=== PATIENT | male | born 1950 | race Caucasian/White ===

== ENCOUNTER 2023-02-23 14:21 | Emergency (ER) | payer MEDICARE ==
[~2023-02-23] VITALS: Ht 182.9 cm; Wt 86.2 kg
[2023-02-23] MEDS ORDERED: ONDANSETRON 4MG INJ ONE (14:45)
[2023-02-23] MEDS ORDERED: MORPHINE 2 MG SYG ONE (14:53)
[2023-02-23] MEDS ORDERED: PROMETHAZINE HCL 25 MG/ML 1ML AMPULE IM ONE ×2 (14:53→15:00)
[2023-02-23 14:56] LABS: APPEARANCE,URINE CLOUDY (CLEAR); BILIRUBIN,URINE NEGATIVE (NEGATIVE); COLOR,URINE YELLOW (YELLOW); GLUCOSE, URINE (UA) NEGATIVE (NEGATIVE); KETONES,URINE 5 mg/dL (NEGATIVE); LEUKOCYTE ESTERASE ,URINE NEGATIVE Leu/uL (NEGATIVE); NITRATE,URINE NEGATIVE (NEGATIVE); OCCULT BLOOD,URINE LARGE (NEGATIVE); PROTEIN,URINE 30 mg/dL (NEGATIVE); UROBILINOGEN,URINE 0.2 mg/dL (0.2-1.0)
[2023-02-23 14:59] LABS: BASOPHILS % (AUTO) 0.5 % (0.0-5.0); EOSINOPHILS % (AUTO) 1.1 % (0.0-8.0); HEMATOCRIT 42.8 % (42-54); LYMPHOCYTES % (AUTO) 8.9 % (21.0-51.0); MEAN CORPUSCULAR HEMOGLOBIN 32.9 pg (27.0-33.0); MEAN CORPUSCULAR HGB CONC 34.3 g/dL (32.0-36.0); MEAN CORPUSCULAR VOLUME 95.7 fL (79-99); MONOCYTES % (AUTO) 7.4 % (3.0-13.0); NEUTROPHILS % (AUTO) 81.6 % (40.0-77.0); PLATELET COUNT (AUTO) 169 K/uL (130-400); RED BLOOD CELL COUNT(AUTO) 4.47 MIL/uL (4.50-6.20); RED CELL DISTRIBUTION WIDTH 13.3 % (11.0-15.5); WHITE BLOOD COUNT (AUTO) 9.8 K/uL (4.8-10.8)
[2023-02-23] MEDS ORDERED: ONDANSETRON 4MG INJ IVP ONE (15:00)
[2023-02-23] MEDS ORDERED: MORPHINE 2 MG SYG IVP ONE ×2 (15:00→17:00)
[2023-02-23 15:10] LABS: BACTERIA,URINE RARE /HPF (None Seen); MUCUS,URINE RARE LPF (None Seen); OTHER CASTS, URINE 2 /LPF (None Seen); RBC,URINE 51-100 /HPF (0-1); SQUAMOUS EPITHELIAL CELL,UR RARE /HPF (0-2)
[2023-02-23 15:10] LABS: CREATININE 1.3 mg/dL (0.5-1.5); POTASSIUM 4.2 mmol/L (3.5-5.1)
[2023-02-23 15:15] LABS: ALBUMIN 4.4 g/dL (3.5-5.0); TOTAL PROTEIN, SERUM 7.2 g/dL (6.0-8.3)
[2023-02-23] MEDS ORDERED: TAMSULOSIN HCL 0.4 MG CAP.ER.24H ONE (16:56)
[2023-02-23] MEDS ORDERED: 0.9% NACL 500ML IV.SOLN 500 ML IV ONE (17:00)
[2023-02-23] MEDS ORDERED: KETOROLAC 15MG/ML VIAL (15MG/ML) IM ONE (17:00)
[2023-02-23 18:19] VITALS: BP 143/51
[2023-02-23] MEDS ORDERED: ACET-2079 PO (18:48)
[2023-02-23] MEDS ORDERED: TAMS-1 PO (18:48)
== END 2023-02-23 18:53 | disposition home or self-care (01) ==
LOC: EDH 14:21
DX: N20.1 Calculus of ureter (principal); R00.1 Bradycardia, unspecified; R11.0 Nausea
CPT/HCPCS: 99285; 74176; 96374; 80053; 85025; 87088; 81001; 36415; 96372 ×2; 96376; J2270 ×2; J7030; J2550; J2405; J1885

== ENCOUNTER 2025-07-13 06:02 | Inpatient (IN) | payer MEDICARE ==
[2025-07-12 11:42] LABS: INR 0.97 (0.85-1.15)
--- NOTE | 2025-07-12 11:48 | EKG ---
[facility] Test Date: 2025-07-12 Test Time: 12:11:44 Pat Name: COLT PAN Department: [facility] Room: 415 Gender: M Manager Flight: [id number] : 1950 Requested By: WALTER LOPEZ Order Number: [id number] Reading MD: Rosario Parr Measurements Intervals [place] Rate: 53 P: 65 AR: 177 QRS: 83 QRSD: 98 T: 72 QT: 429 QTc: 403 Interpretive Statements Sinus rhythm No previous ECG available for comparison Electronically Signed On 07-14-2025 12:38:01 DRIVER COURIER by Rosario Parr Please click the below link to view image of tracing.
[2025-07-12 11:50] VITALS: BP 132/66; PULSE 56; RESP 14; TEMP 97.5
--- NOTE | 2025-07-12 11:52 | NUR ---
PREOP PT INSTRUCTED ON INCENTIVE SPIROMETRY BY PHYLLIS SHELTON
[2025-07-13] VITALS (28 sets, daily range): BP systolic 98–151; BP diastolic 45–80; PULSE 45–102; RESP 15–20; TEMP 97.3–98; O2SAT 98
[~2025-07-13] VITALS: Ht 180.3 cm; Wt 85.3 kg
[~2025-07-13 06:02] MED LIST: ACET-2079 PO; MVI PO; NAPR-1194 PO; TAMS-55 PO
[2025-07-13] MEDS: LACTATED RINGERS 1000ML 1,000 ML IV ONE (06:40)
[2025-07-13] MEDS ORDERED: MIDAZOLAM HCL 1 MG/ML 2ML VIAL ONE (06:45)
[2025-07-13] MEDS ORDERED: LIDOCAINE 2%-EPI 1:200,000 20 ML VIAL IJ ONE (07:02)
[2025-07-13] MEDS ORDERED: PROMETHAZINE HCL 25 MG/ML 1ML AMPULE IM PRN (07:30)
[2025-07-13] MEDS: TRANEXAMIC ACID 1000MG/10ML IV ONE ×2 (07:49→09:42)
[2025-07-13] MEDS ORDERED: PoTASSium chl 10% ELIXIR 20MEQ 20 MEQ/15 ML UDCUP PO PRN (08:00)
[2025-07-13] MEDS ORDERED: FERROUS FUMARATE 324 MG TABLET PO PRN (08:00)
[2025-07-13] MEDS: ERGOCALCIFEROL (VITAMIN D2) 50,000 UNIT CAPSULE PO ONE (08:00)
[2025-07-13] MEDS ORDERED: CALCIUM CARB 500MG PO PRN (08:00)
[2025-07-13] MEDS ORDERED: HYDROcodone/APAP 5/325 1 TAB TABLET PO PRN (08:00)
[2025-07-13] MEDS ORDERED: GLYCOPYRROLATE 0.2 MG/ML 5 ML VIAL ONE ×2 (10:00→10:15)
[2025-07-13] MEDS ORDERED: NEOSTIGMINE METHYLSULFATE 1MG/ML IV ONE (10:00)
--- NOTE | 2025-07-13 11:30 | HMCIMG ---
EXAM: CR right Knee, 2 View. CLINICAL HISTORY: S/P RT TKA SURGERY COMPARISON: None provided. FINDINGS: No acute fracture or aggressive appearing osseous lesion. Right total knee arthroplasty is in near anatomic alignment with no periprosthetic fracture appreciated. Appropriate postsurgical changes within the soft tissues surrounding the knee. IMPRESSION: 1. Right total knee arthroplasty in near anatomic alignment without periprosthetic fracture. /[place]
--- NOTE | 2025-07-13 12:05 | OP ---
Operative Note: DATE OF PROCEDURE: 07/13/25 PREOPERATIVE DIAGNOSIS: Right knee osteoarthritis. POSTOPERATIVE DIAGNOSIS: Right knee osteoarthritis. PROCEDURE PERFORMED: Right knee total knee arthroplasty. SURGEON: Joselyn Chang MD BILLET BED OPERATOR: Michael Velasquez. ANESTHESIA: General with adductor canal block. ANESTHESIA: DRILL INSTRUCTOR Kam Kelley. ESTIMATED BLOOD LOSS: 50cc. COMPLICATIONS: None. DRAINS: None. SPECIMENS REMOVED: resected bone. Not sent to pathology. IMPLANTS: [employer] II BCS size 9 Oxinium femur, size 7 tibial base plate, 35 mm patella, 10 mm polyethylene STATEMENT OF MEDICAL NECESSITY: The patient is a 74-year-old male who suffers from right knee osteoarthritis failing conservative management. After discussion of the risks, benefits, and alternatives with the patient, they voluntarily agreed to undergo the aforementioned procedure. DESCRIPTION OF PROCEDURE: Patient was properly identified in the preoperative holding area. Surgical site marking was verified and surgery consent reviewed. The patient was then taken to the operating room and placed in supine position on the OR table. After induction of general anesthesia, preoperative antibiotics were given, all bony prominences were well-padded, and a well padded tourniquet was applied but not inflated at this time. The right lower extremity was then prepped and draped in usual sterile fashion. Surgical time out was done verifying correct surgery, side, site, and location to be performed. We then began the procedure by exsanguinating the limb using an Esmarch and inflating the tourniquet to 350 mmHg. At this point, we made an anterior midline incision using a 10 blade, coming down sharply the level of the fascia. Skin flaps were elevated medially and laterally. We then obtained a clean 10 blade and performed a standard medial parapatellar arthrotomy. We excised the infrapatellar fat pad. We performed our soft tissue releases off of the tibia. We transected the ACL and removed the anterior portion of the medial & lateral meniscus. We then brought the knee into hyperflexion with the patella everted. We used our entry reamer to enter the femoral canal. We then placed our intramedullary cutting guide for our distal femoral cutting block. We then performed our distal femoral osteotomy ensuring appropriate rotation and removed the bony wafer. However, secondary to preoperative flexion contracture, we elected to go ahead and take +2 mm at this time. We then removed these pins and block and then used jig 2 to size the distal femur with the after mentioned size found. We then placed our 5-in-1 cutting block in 4 degrees of external rotation and took our 5 cuts ensuring to protect the patellar tendon and the collateral ligaments. We then removed the cutting block and our bony fragments using a curved osteotome. We then placed our PCL retractor subluxating the tibia anteriorly. Using an extra medullary tibial cutting guide, we hung the block for our proximal tibial cut taking 2 mm off the more diseased portion. Prior to pinning this block in place, we ensured appropriate varus/valgus alignment and posterior slope similar to the [place] slope of the patient's knee. We then performed our proximal tibial osteotomy and removed the bony wafer using Bovie electrocautery to release any remaining soft tissue attachments. We then used our tibial sizing paddle and checked once more for varus & valgus alignment and found this to be appropriate. At this point, we pinned our tibial paddle in place. We then removed the PCL retractor and subluxated the tibia posteriorly while we placed our femoral trial component. We then finished preparing the notch with the reamer and box chisel. The notch portion of the trial femoral component was then placed. A posterior stabilized polyethylene, size 9 trial was placed. The knee was then taken through range of motion and found to have stable full range of motion. We then placed a bump under the ankle and everted the patella to perform our freehand cut of the undersurface the patella. We then sized our patella and reamed to the lug holes for this. We placed our trial patellar component and begin to take the knee through range of motion. The patella had appropriate tracking. At this point we began removing our trial components and punched the tibial keel prior to removing our tibial trial component. Final components were opened and cement was mixed on the back table while we injected local cocktail in the posterior capsule. We then thoroughly irrigated out the bone and dried the bony surfaces. We cemented our tibial component in place ensuring to remove excess cement and placed our trial polyethylene. We then cemented our femoral component in place once again taking time to ensure excess cement was removed leg was brought into full extension to help squeeze the excess cement from around the femoral component. We then brought the knee back in a flexion to remove this portion of the cement at this point we placed the ankle in a bump thoroughly irrigated off the patellar component and cemented our patellar component in standard fashion again removing excess cement. While we waited for the cement to cure, we thoroughly irrigated out the wound with normal saline. Once our cement had cured, we took the knee through a range of motion and found full and stable range of motion. We then elected to use the size 9 polyethylene and removed our trial polyethylene. We impacted our final polyethylene component in place in standard fashion and took the knee through a range of motion check once more. This was satisfactory so we began to repair the arthrotomy using #1 Vicryl in interrupted [id number] fashion. Subcutaneous tissue was repaired using 2-0 Vicryl. Running subcuticular 3-0 Monocryl stitch with Dermabond placed over this for the skin. We then applied a foam barrier dressing and a pressure dressing consisting of 4 x 4's fluffs and an Omar wrap. The tourniquet was then deflated. Patient was awakened from anesthesia, and they were taken to the recovery room in stable condition. JOSELYN CHANG MD Jul 13, 2025 12:05
--- NOTE | 2025-07-13 14:00 | NUR ---
ORTHO COORDINATOR: TEACHING REGARDING DVT AND PNEUMONIA PREVENTION. PAIN EXPECTATIONS AND PAIN MANAGEMENT. PATIENT STANDING AT BEDSIDE. DR LOPEZ AT BEDSIDE. FAMILY AT BEDSIDE. B SCD'S SLEEVES TO LOWER EXTREMITIES, MACHINE IN ROOM. INCENTIVE SPIROMETER AT BEDSIDE. DISCUSSION WITH SURGEON. SURGEON DISCUSSED USE OF MUSCLE SPASM MEDICATION TO EASE SPASMS TO SURGICAL LIMB. PATIENT AND FAMILY AGREED. SURGEON LEFT BEDSIDE. PAIN MANAGEMENT STRATEGY DISCUSSED. SCHEDULED AND PRN MEDICATIONS REVIEWED. QUESTIONS ANSWERED. PATIENT VERBALIZED PROPER FREQUENCY OF USE OF INCENTIVE SPIROMETER. PATIENT RETURN DEMONSTRATED PROPER FOOT FLEXION AND EXTENSION EXERCISES, RATIONALE FOR BOTH EXPLAINED. PATIENT INSTRUCTED TO KEEP THE LOWER OF PORTION OF BED FLAT AND NOT TO PLACE PILLOW UNDERNEATH SURGICAL KNEE, RATIONALE PROVIDED. PATIENT INSTRUCTED SCD SLEEVES TO BE IN PLACED AND FUNCTIONING WHILE IN BED AND DURING THE NIGHT. PATIENT AND FAMILY VERBALIZED UNDERSTANDING TO ALL INSTRUCTIONS. ICE PACK APPLIED TO SURGICAL KNEE. NO ADDITIONAL QUESTIONS OR CONCERNS. 1415 PAIN MANAGEMENT STRATEGY DISCUSSED WITH PRIMARY NURSE, TO INCLUDE THE USE OF MUSCLE SPASM MEDICATION. PRIMARY NURSE ACKNOWLEDGE COMMUNICATION.
[2025-07-13] MEDS: 0.9%NACL 1000ML 1,000 ML IV SCH (14:18)
[2025-07-13] MEDS: CYCLOBENZAPRINE HCL 10 MG TABLET PO PRN (14:21)
[2025-07-14] VITALS (7 sets, daily range): BP systolic 115–164; BP diastolic 49–78; PULSE 69–80; RESP 17–20; TEMP 97.6–98; O2SAT 94–95
[2025-07-14] MEDS: HYDROcodone/APAP 5/325 1 TAB TABLET PO PRN ×2 (04:28→16:39)
[2025-07-14 05:13] LABS: NUCLEATED RED BLOOD CELLS 0.0 % (0.0-0.19); PLATELET COUNT (AUTO) 150.0 K/uL (130-400); RED BLOOD CELL COUNT(AUTO) 3.3 MIL/uL (4.50-6.20); RED CELL DISTRIBUTION WIDTH 13.2 % (11.0-15.5); WHITE BLOOD COUNT (AUTO) 8.5 K/uL (4.8-10.8)
[2025-07-14 05:24] LABS: CREATININE 0.9 mg/dL (0.5-1.3); GLOMERULAR FILTR. RATE CALC 89.0 mL/min (>90); GLUCOSE,RANDOM 115.0 mg/dL (70-105); SODIUM SERUM 140.0 mmol/L (136-145); UREA NITROGEN, BLOOD 16.0 mg/dL (7-18)
--- NOTE | 2025-07-14 08:16 | PN ---
Ortho POD #1. This morning the patient is out of bed in no acute distress. Reporting acceptable pain control. VSS, Afbrile. Laboratory results reviewed. Noted to have a drop in H & H as expected. Will continue to monitor for signs and symptoms and treat as necessary per protocol. Operative findings discussed with the patient. He is pending to void by 0800. He was straight catheterized due to retention and yeilded +800ml. He has history of BPH. Discussed with patient if he does not void we may have to place an indwelling catheter and refer to urology. Will continue to assess. The vitaliy bandage has been removed. The dressing is intact, Negative Trinidad's, alternating extension and flexion on foot stool while seated in chair. Ice present to anterior joint. SCD sleves currently not on but available. Reenforced IS. He ambulated with PT 30 ft yesterday and is pending PT this morning. The anticipated d/c goal was SNF but at present the patient wants to go home with HH/PT. He states his and son will help him. He wants to leave today if possible. Informed will see with CM and also needs to void. He voiced understanding. Assessment: s/p RT TKA Actue post operative blood loss anemia Plan: Continue with Dr. Chang TKA protocol and discharge planning. Acute post operative blood loss anemia address with protocol as necessary Vitals/Labs Vital Signs Date Time Temp Pulse Resp B/P (MAP) Pulse Ox O2 Delivery O2 Flow Rate FiO2 07/14/25 04:00 97.5 80 17 128/63 94 Room Air 07/13/25 20:00 0 21 Laboratory Tests 07/14/25 04:43 Medications Current Medications Cefazolin Sodium 2 gm STK-MED ONCE .ROUTE; Start 07/13/25 at 06:15; Stop 07/13/25 at 06:16; Status DC Lactated Ringer's 1,000 ml @ As Directed STK-MED ONCE IV Last administered on 07/13/25at 06:40; Start 07/13/25 at 06:15; Stop 07/13/25 at 06:16; Status DC Ondansetron HCl 4 mg STK-MED ONCE .ROUTE; Start 07/13/25 at 06:44; Stop 07/13/25 at 06:45; Status DC Propofol 200 mg STK-MED ONCE IV; Start 07/13/25 at 06:45; Stop 07/13/25 at 06:45; Status DC Midazolam HCl 2 mg STK-MED ONCE .ROUTE; Start 07/13/25 at 06:45; Stop 07/13/25 at 06:45; Status DC Rocuronium [place] 50 mg STK-MED ONCE .ROUTE; Start 07/13/25 at 06:45; Stop 07/13/25 at 06:45; Status DC Fentanyl Citrate 100 mcg STK-MED ONCE .ROUTE; Start 07/13/25 at 06:45; Stop 07/13/25 at 06:46; Status DC Ondansetron HCl 4 mg AD PRN IVP; Start 07/13/25 at 07:30; Stop 07/13/25 at 11:43; Status DC Metoclopramide HCl 10 mg AD PRN IVP; Start 07/13/25 at 07:30; Stop 07/13/25 at 11:43; Status DC Promethazine HCl 25 mg AD PRN IM; Start 07/13/25 at 07:30; Stop 07/13/25 at 11:43; Status DC Ketorolac Tromethamine 30 mg AD PRN IV; Start 07/13/25 at 07:30; Stop 07/13/25 at 11:43; Status DC Morphine Sulfate 2 mg AD PRN IVP; Start 07/13/25 at 07:30; Stop 07/13/25 at 11:43; Status DC Fentanyl Citrate 25 mcg Q5MIN PRN IVP; Start 07/13/25 at 07:30; Stop 07/13/25 at 11:43; Status DC Naloxone HCl 0.1 mg AD PRN IVP; Start 07/13/25 at 07:30; Stop 07/13/25 at 11:43; Status DC Ropivacaine 150 mg STK-MED ONCE .ROUTE; Start 07/13/25 at 07:02; Stop 07/13/25 at 07:02; Status DC Lidocaine/ Epinephrine 20 ml STK-MED ONCE IJ; Start 07/13/25 at 07:02; Stop 07/13/25 at 07:02; Status DC Sodium Chloride 1,000 ml @ 100 mls/hr Q10H IV Last administered on 07/13/25at 14:18; Start 07/13/25 at 08:00; Stop 07/14/25 at 07:59; Status DC Polyethylene Glycol 17 gm DAILY PO; Start 07/13/25 at 09:00; Stop 08/12/25 at 08:59 Bisacodyl 10 mg DAILY PRN RC; Start 07/16/25 at 08:00; Stop 08/15/25 at 07:59 Ketorolac Tromethamine 15 mg Q6H PRN IV; Start 07/14/25 at 08:00; Stop 07/19/25 at 07:59 Ferrous Fumarate 324 mg DAILY PRN PO; Start 07/13/25 at 08:00; Stop 08/12/25 at 07:59 Ondansetron HCl 4 mg Q6H PRN IVP; Start 07/13/25 at 08:00; Stop 08/12/25 at 07:59 Calcium Carbonate 500 mg Q12H PRN PO; Start 07/13/25 at 08:00; Stop 08/12/25 at 07:59 Cefazolin Sodium 2 gm Q8H IVP Last administered on 07/13/25at 19:52; Start 07/13/25 at 13:00; Stop 07/13/25 at 21:01; Status DC Cyclobenzaprine HCl 5 mg Q8H PRN PO Last administered on 07/13/25at 14:21; Start 07/13/25 at 08:00; Stop 08/12/25 at 07:59 Gabapentin 100 mg TID PO Last administered on 07/13/25at 19:52; Start 07/13/25 at 09:00; Stop 08/12/25 at 08:59 Aspirin 325 mg DAILY PO; Start 07/14/25 at 09:00; Stop 08/13/25 at 08:59 Ketorolac Tromethamine 15 mg Q8H IV Last administered on 07/13/25at 23:57; Start 07/13/25 at 08:00; Stop 07/14/25 at 00:01; Status DC Docusate Sodium 100 mg BID PO Last administered on 07/13/25at 19:52; Start 07/13/25 at 09:00; Stop 08/12/25 at 08:59 Potassium Chloride 100 ml @ 100 mls/hr AD PRN IV; Start 07/13/25 at 08:00; Stop 08/12/25 at 07:59 Potassium Chloride 20 meq AD PRN PO; Start 07/13/25 at 08:00; Stop 08/12/25 at 07:59 Potassium Chloride 20 meq AD PRN PO; Start 07/13/25 at 08:00; Stop 08/12/25 at 07:59 Tramadol HCl 50 mg Q6H PRN PO; Start 07/13/25 at 08:00; Stop 07/18/25 at 07:59 Acetaminophen/ Hydrocodone Bitart Q4H PRN PO; Start 07/13/25 at 08:00; Stop 07/13/25 at 07:53; Status DC Pantoprazole Sodium 40 mg DAILY PO; Start 07/13/25 at 09:00; Stop 08/12/25 at 08:59 Ergocalciferol 50,000 unit ONCE ONCE PO; Start 07/13/25 at 08:00; Stop 07/13/25 at 08:01; Status DC Acetaminophen/ Hydrocodone Bitart 1 tab Q4H PRN PO; Start 07/13/25 at 08:00; Stop 07/18/25 at 07:59 Acetaminophen/ Hydrocodone Bitart 2 tab Q4H PRN PO Last administered on 07/14/25at 04:28; Start 07/13/25 at 08:00; Stop 07/18/25 at 07:59 Cefazolin Sodium 2 gm STK-MED ONCE IVPB Last administered on 07/13/25at 07:47; Start 07/13/25 at 07:47; Stop 07/13/25 at 08:38; Status DC Tranexamic Acid 1,000 mg STK-MED ONCE IV Last administered on 07/13/25at 07:49; Start 07/13/25 at 07:49; Stop 07/13/25 at 08:38; Status DC Ropivacaine 150 mg STK-MED ONCE IJ Last administered on 07/13/25at 08:36; Start 07/13/25 at 08:36; Stop 07/13/25 at 08:38; Status DC Ketorolac Tromethamine 30 mg STK-MED ONCE IJ Last administered on 07/13/25at 08:36; Start 07/13/25 at 08:36; Stop 07/13/25 at 08:38; Status DC Tranexamic Acid 1,000 mg STK-MED ONCE IV Last administered on 07/13/25at 09:42; Start 07/13/25 at 09:42; Stop 07/13/25 at 09:43; Status DC Glycopyrrolate 1 mg STK-MED ONCE .ROUTE; Start 07/13/25 at 10:00; Stop 07/13/25 at 10:00; Status DC Neostigmine Methylsulfate 10 mg STK-MED ONCE IV; Start 07/13/25 at 10:00; Stop 07/13/25 at 10:00; Status DC Fentanyl Citrate 100 mcg STK-MED ONCE .ROUTE; Start 07/13/25 at 10:00; Stop 07/13/25 at 10:01; Status DC Glycopyrrolate 1 mg STK-MED ONCE .ROUTE; Start 07/13/25 at 10:15; Stop 07/13/25 at 10:16; Status DC Ketorolac Tromethamine 15 mg STK-MED ONCE .ROUTE Last administered on 07/13/25at 10:47; Start 07/13/25 at 10:44; Stop 07/13/25 at 10:44; Status DC Fentanyl Citrate 100 mcg STK-MED ONCE .ROUTE Last administered on 07/13/25at 11:59; Start 07/13/25 at 10:52; Stop 07/13/25 at 10:53; Status DC Fentanyl Citrate 100 mcg STK-MED ONCE .ROUTE Last administered on 07/13/25at 11:47; Start 07/13/25 at 10:57; Stop 07/13/25 at 10:57; Status DC Hydromorphone HCl 1 mg STK-MED ONCE .ROUTE Last administered on 07/13/25at 11:49; Start 07/13/25 at 11:04; Stop 07/13/25 at 11:04; Status DC Hydromorphone HCl 1 mg STK-MED ONCE .ROUTE Last administered on 07/13/25at 11:51; Start 07/13/25 at 11:33; Stop 07/13/25 at 11:33; Status DC WYATT THOMASP Jul 14, 2025 08:16
[2025-07-14] MEDS: ASPIRIN 325MG EC TAB PO SCH (08:24)
--- NOTE | 2025-07-14 10:09 | NUR ---
DC PLAN CHANGE PATIENT FROM HOME WITH SPOUSE. INDEPENDENT ABLE TO PERFORM ADL'S. PATIENT HAS WALKER. PLAN WAS TO GO TO SNF. SPOUSE WORRIED. SAID HE WAS HAVING PROBLEMS WITH PAIN AT HOME AND ALSO URINARY RETENTION. SPOUSE WORRIED ABOUT SAFETY AT HOME ESPECIALLY AT NIGHT. THIS MORNING PATIENT CHANGED MIND AND SAID HE WANTS TO GO HOME WITH HOME HEALTH STILL HAVING URINARY RETENTION. PENDING PT TO SEE HOW HE DOES. DEPENDING ON HOW HE DOES WILL BE WHAT THE PLAN WILL BE.
[2025-07-14] MEDS: PoTASSium chloRIDE 20MEQ ER 20 MEQ ERTAB PO PRN (10:35)
--- NOTE | 2025-07-14 14:48 | NUR ---
DC PLAN PATIENT ACCEPTED TO [facility]. NURSE AND MD NOTIFIED. PATIENT HAVING URINARY RETENTION. LET PT KNOW THAT PATIENT NOW WANTS TO GO HOME. NEEDING STAIR TRAINING. SAID WOULD DO IT AFTER LUNCH.
--- NOTE | 2025-07-14 14:50 | NUR ---
URINE RETENTION Patient with history of BPH. Home medication Flomax 0.4mg daily. Last dose received on 07/13/25. Spouse administered today's dose this morning. Patient continues with minimal urine output, less than 15-30mL at a time. Bladder scans continue to reveal large volumes of urine retained in bladder. Dr. Chang notified. New order received to reinsert curry catheter.
--- NOTE | 2025-07-14 16:30 | NUR ---
ORTHO COORDINATOR: REINFORCED TEACHING. PATIENT IN BED. SPOUSE AND FAMILY AT BEDSIDE. JACKSON CATH PRESENT. DRESSING TO RIGHT KNEE CLEAN, DRY AND INTACT. SWELLING AND BRUISING TO RIGHT KNEE. B SCD SLEEVES IN PLACE AND FUNCTIONING. INCENTIVE SPIROMETER ON BEDSIDE TABLE. PATIENT INTENDS ON DISCHARGING HOME WITH HOME HEALTH PHYSICAL THERAPY. HOME HEALTH PHYSICAL THERAPY EXPLAINED. PATIENT ENCOURAGED TO CONTINUE PREMEDICATING PRIOR TO PHYSICAL THERAPY AND PERIODS OF HIGH ACTIVITY, TO CONTINUE USE OF INCENTIVE SPIROMETER, TO CONTINUE FOOT FLEXION AND EXTENSION EXERCISES, TO CONTINUE AMBULATING AND HYDRATING. RATIONALE FOR ALL PROVIDED. JACKSON CARE REVIEWED. QUESTIONS ANSWERED. NO ADDITIONAL QUESTIONS OR CONCERNS AT THIS TIME.
--- NOTE | 2025-07-14 17:39 | NUR ---
PAIN REASSESSMENT Patient administered [place] 5/325 at `639 for pain of 5/10. At one hour reassessment, patient reports pain at 5/10 however states that pain is improved since time of administration of [place] 5/325 (1 tab). Pain reported is muscle tightness. Will administer prn Cyclobenzaprine
[2025-07-15] VITALS (7 sets, daily range): BP systolic 128–145; BP diastolic 59–74; PULSE 62–83; RESP 17–20; TEMP 97–98.4
--- NOTE | 2025-07-15 12:41 | NUR ---
patient voided 100ml, POST VOID 366 BLADDER SCANNER ,PATIENT ALSO REQUESTING LAXATIVE, MESSAGED
[2025-07-15] MEDS: LACTULOSE 20 GM/30 ML UDCUP PO ONE (13:42)
--- NOTE | 2025-07-15 14:47 | PN ---
POD 2 Doing well. Continued urinary retention. RLE - dressing c/d/i - mild edema - calf soft/NT [facility] Vitals/Labs Vital Signs Date Time Temp Pulse Resp B/P (MAP) Pulse Ox O2 Delivery O2 Flow Rate FiO2 07/15/25 12:00 98.2 66 18 131/59 98 Room Air 07/14/25 20:00 0 21 Medications Current Medications Cefazolin Sodium 2 gm STK-MED ONCE .ROUTE; Start 07/13/25 at 06:15; Stop 07/13/25 at 06:16; Status DC Lactated Ringer's 1,000 ml @ As Directed STK-MED ONCE IV Last administered on 07/13/25at 06:40; Start 07/13/25 at 06:15; Stop 07/13/25 at 06:16; Status DC Ondansetron HCl 4 mg STK-MED ONCE .ROUTE; Start 07/13/25 at 06:44; Stop 07/13/25 at 06:45; Status DC Propofol 200 mg STK-MED ONCE IV; Start 07/13/25 at 06:45; Stop 07/13/25 at 06:45; Status DC Midazolam HCl 2 mg STK-MED ONCE .ROUTE; Start 07/13/25 at 06:45; Stop 07/13/25 at 06:45; Status DC Rocuronium Cabins 50 mg STK-MED ONCE .ROUTE; Start 07/13/25 at 06:45; Stop 07/13/25 at 06:45; Status DC Fentanyl Citrate 100 mcg STK-MED ONCE .ROUTE; Start 07/13/25 at 06:45; Stop 07/13/25 at 06:46; Status DC Ondansetron HCl 4 mg AD PRN IVP; Start 07/13/25 at 07:30; Stop 07/13/25 at 11:43; Status DC Metoclopramide HCl 10 mg AD PRN IVP; Start 07/13/25 at 07:30; Stop 07/13/25 at 11:43; Status DC Promethazine HCl 25 mg AD PRN IM; Start 07/13/25 at 07:30; Stop 07/13/25 at 11:43; Status DC Ketorolac Tromethamine 30 mg AD PRN IV; Start 07/13/25 at 07:30; Stop 07/13/25 at 11:43; Status DC Morphine Sulfate 2 mg AD PRN IVP; Start 07/13/25 at 07:30; Stop 07/13/25 at 11:43; Status DC Fentanyl Citrate 25 mcg Q5MIN PRN IVP; Start 07/13/25 at 07:30; Stop 07/13/25 at 11:43; Status DC Naloxone HCl 0.1 mg AD PRN IVP; Start 07/13/25 at 07:30; Stop 07/13/25 at 11:43; Status DC Ropivacaine 150 mg STK-MED ONCE .ROUTE; Start 07/13/25 at 07:02; Stop 07/13/25 at 07:02; Status DC Lidocaine/ Epinephrine 20 ml STK-MED ONCE IJ; Start 07/13/25 at 07:02; Stop 07/13/25 at 07:02; Status DC Sodium Chloride 1,000 ml @ 100 mls/hr Q10H IV Last administered on 07/13/25at 14:18; Start 07/13/25 at 08:00; Stop 07/14/25 at 07:59; Status DC Polyethylene Glycol 17 gm DAILY PO Last administered on 07/15/25at 09:05; Start 07/13/25 at 09:00; Stop 08/12/25 at 08:59 Bisacodyl 10 mg DAILY PRN RC; Start 07/16/25 at 08:00; Stop 08/15/25 at 07:59 Ketorolac Tromethamine 15 mg Q6H PRN IV Last administered on 07/15/25at 08:58; Start 07/14/25 at 08:00; Stop 07/19/25 at 07:59 Ferrous Fumarate 324 mg DAILY PRN PO; Start 07/13/25 at 08:00; Stop 08/12/25 at 07:59 Ondansetron HCl 4 mg Q6H PRN IVP; Start 07/13/25 at 08:00; Stop 08/12/25 at 07:59 Calcium Carbonate 500 mg Q12H PRN PO; Start 07/13/25 at 08:00; Stop 08/12/25 at 07:59 Cefazolin Sodium 2 gm Q8H IVP Last administered on 07/13/25at 19:52; Start 07/13/25 at 13:00; Stop 07/13/25 at 21:01; Status DC Cyclobenzaprine HCl 5 mg Q8H PRN PO Last administered on 07/14/25at 18:10; Start 07/13/25 at 08:00; Stop 08/12/25 at 07:59 Gabapentin 100 mg TID PO Last administered on 07/14/25at 14:38; Start 07/13/25 at 09:00; Stop 07/14/25 at 16:55; Status DC Aspirin 325 mg DAILY PO Last administered on 07/15/25at 09:05; Start 07/14/25 at 09:00; Stop 08/13/25 at 08:59 Ketorolac Tromethamine 15 mg Q8H IV Last administered on 07/13/25at 23:57; Start 07/13/25 at 08:00; Stop 07/14/25 at 00:01; Status DC Docusate Sodium 100 mg BID PO Last administered on 07/15/25at 09:04; Start 07/13/25 at 09:00; Stop 08/12/25 at 08:59 Potassium Chloride 100 ml @ 100 mls/hr AD PRN IV; Start 07/13/25 at 08:00; Stop 08/12/25 at 07:59 Potassium Chloride 20 meq AD PRN PO; Start 07/13/25 at 08:00; Stop 08/12/25 at 07:59 Potassium Chloride 20 meq AD PRN PO Last administered on 07/14/25at 16:41; Start 07/13/25 at 08:00; Stop 08/12/25 at 07:59 Tramadol HCl 50 mg Q6H PRN PO Last administered on 07/14/25at 10:35; Start 07/13/25 at 08:00; Stop 07/18/25 at 07:59 Acetaminophen/ Hydrocodone Bitart Q4H PRN PO; Start 07/13/25 at 08:00; Stop 07/13/25 at 07:53; Status DC Pantoprazole Sodium 40 mg DAILY PO Last administered on 07/15/25at 09:05; Start 07/13/25 at 09:00; Stop 08/12/25 at 08:59 Ergocalciferol 50,000 unit ONCE ONCE PO; Start 07/13/25 at 08:00; Stop 07/13/25 at 08:01; Status DC Acetaminophen/ Hydrocodone Bitart 1 tab Q4H PRN PO Last administered on at 13:40; Start 07/13/25 at 08:00; Stop 07/18/25 at 07:59 Acetaminophen/ Hydrocodone Bitart 2 tab Q4H PRN PO Last administered on 07/15/25at 06:05; Start 07/13/25 at 08:00; Stop 07/18/25 at 07:59 Cefazolin Sodium 2 gm STK-MED ONCE IVPB Last administered on 07/13/25at 07:47; Start 07/13/25 at 07:47; Stop 07/13/25 at 08:38; Status DC Tranexamic Acid 1,000 mg STK-MED ONCE IV Last administered on 07/13/25at 07:49; Start 07/13/25 at 07:49; Stop 07/13/25 at 08:38; Status DC Ropivacaine 150 mg STK-MED ONCE IJ Last administered on 07/13/25at 08:36; Start 07/13/25 at 08:36; Stop 07/13/25 at 08:38; Status DC Ketorolac Tromethamine 30 mg STK-MED ONCE IJ Last administered on 07/13/25at 08:36; Start 07/13/25 at 08:36; Stop 07/13/25 at 08:38; Status DC Tranexamic Acid 1,000 mg STK-MED ONCE IV Last administered on 07/13/25at 09:42; Start 07/13/25 at 09:42; Stop 07/13/25 at 09:43; Status DC Glycopyrrolate 1 mg STK-MED ONCE .ROUTE; Start 07/13/25 at 10:00; Stop 07/13/25 at 10:00; Status DC Neostigmine Methylsulfate 10 mg STK-MED ONCE IV; Start 07/13/25 at 10:00; Stop 07/13/25 at 10:00; Status DC Fentanyl Citrate 100 mcg STK-MED ONCE .ROUTE; Start 07/13/25 at 10:00; Stop 07/13/25 at 10:01; Status DC Glycopyrrolate 1 mg STK-MED ONCE .ROUTE; Start 07/13/25 at 10:15; Stop 07/13/25 at 10:16; Status DC Ketorolac Tromethamine 15 mg STK-MED ONCE .ROUTE Last administered on 07/13/25at 10:47; Start 07/13/25 at 10:44; Stop 07/13/25 at 10:44; Status DC Fentanyl Citrate 100 mcg STK-MED ONCE .ROUTE Last administered on 07/13/25at 1 1:59; Start 07/13/25 at 10:52; Stop 07/13/25 at 10:53; Status DC Fentanyl Citrate 100 mcg STK-MED ONCE .ROUTE Last administered on 07/13/25at 11:47; Start 07/13/25 at 10:57; Stop 07/13/25 at 10:57; Status DC Hydromorphone HCl 1 mg STK-MED ONCE .ROUTE Last administered on 07/13/25at 11:49; Start 07/13/25 at 11:04; Stop 07/13/25 at 11:04; Status DC Hydromorphone HCl 1 mg STK-MED ONCE .ROUTE Last administered on 07/13/25at 11:51; Start 07/13/25 at 11:33; Stop 07/13/25 at 11:33; Status DC Tamsulosin HCl 0.4 mg DAILY PO; Start 07/16/25 at 09:00; Stop 08/15/25 at 08:59 Lactulose 20 gm ONCE ONCE PO Last administered on 07/15/25at 13:42; Start 07/15/25 at 14:00; Stop 07/15/25 at 14:01; Status DC WALTER LOPEZ MD Jul 15, 2025 14:47
[2025-07-16] VITALS: BP 125/57; PULSE 62; RESP 21; TEMP 98
[2025-07-16 04:00] VITALS: BP 132/59; PULSE 68; RESP 18; TEMP 98.1
[2025-07-16 08:00] VITALS: O2SAT 96
[2025-07-16 08:35] VITALS: BP 136/57; PULSE 84; RESP 17; TEMP 98.1
[2025-07-16] MEDS: LACTULOSE 20 GM/30 ML UDCUP PO ONE (08:39)
[2025-07-16] MEDS ORDERED: ASPI-891 PO (11:43)
[2025-07-16] MEDS ORDERED: HYDR-4060 PO (11:43)
[2025-07-16] MEDS ORDERED: CYCL-309 PO (11:43)
[2025-07-16] MEDS ORDERED: PANT40TA PO (11:43)
[2025-07-16] MEDS ORDERED: DOCU-116 PO (11:43)
[2025-07-16] MEDS ORDERED: CHOL2000 PO (11:43)
[2025-07-16 12:00] VITALS: BP 129/55; PULSE 79; RESP 18; TEMP 98.1
[2025-07-16] MEDS: MAGNESIUM HYDROXIDE 30 ML/UDCUP PO ONE (15:58)
[2025-07-16 16:24] VITALS: BP 127/58; PULSE 75; RESP 18; TEMP 97.9
--- NOTE | 2025-07-16 16:54 | NUR ---
pending to have bm , lactulose given earlier , no bm . GAVE MILK OF MAGESIUM , PENDING BM
--- NOTE | 2025-07-16 19:20 | NUR ---
patient had bm post enema , updated dr sparks . report given to nurse mayers from sn[facility] . dc instructions provided to patient and , both verbalized understanding
--- NOTE | 2025-07-19 14:00 | NUR ---
ORTHO COORDINATOR: DISCHARGE FOLLOW UP CALL. DISCHARGED TO SNF WITH [facility], [facility] STILL IN PLACE, ADDITIONAL MEDICATIONS ADDED TO REDUCE SWELLING TO PROSTRATE WILL ATTEMPT TO REMOVE THIS FRIDAY. PAIN CONTROLLED. SECOND PT SESSION PATIENT REPORTS HE IS DOING WELL. PATIENTS DESCRIBES SURGICAL SITE AT FREE FROM INFECTION, NO DRAINAGE. NO ADDITIONAL QUESTION OR CONCERNS.
== END 2025-07-16 18:44 | DRG 470 ==
LOC: DAH 06:02 → DAHIP 06:03 → OBSVTOIN 06:03 → 4CH 12:00
PROVIDERS: ADMIT Student in an Organized Health Care Education/Training Program; ATTEND Student in an Organized Health Care Education/Training Program
PROC: 0SRC069 Replacement of Right Knee Joint with Oxidized Zirconium on Polyethylene Synthetic Substitute, Cemented, Open Approach (ICD-10-PCS; principal; 2025-07-13 08:03)
DX: M17.11 Unilateral primary osteoarthritis, right knee (principal); D62 Acute posthemorrhagic anemia; N40.1 Benign prostatic hyperplasia with lower urinary tract symptoms; R33.8 Other retention of urine; Z79.899 Other long term (current) drug therapy
CPT/HCPCS: 36415; 73560; 80048; 84134; 85027; 85610; 85730; 86140; 87641; 93005; G0378; J1171; J1885; J2250; J2405; J2704; J2710; J2795; J3010; J3490; J7120; A4213; A4215; A4216; A4221; A4222; A4223; A4649; A4663; A4930; A6255; C1713; C1776; J0690